=== PATIENT | male | born 1940 | race Caucasian/White ===

== ENCOUNTER 2024-07-31 06:24 | Day surgery (SDC) | payer OTHER, SELFPAY | END 2024-07-31 12:40 | disposition home or self-care (01) | LOC: GI 06:24 | PROVIDERS: ATTENDING PHYSICIAN Internal Medicine Gastroenterology; FAMILY PHYSICIAN Hospitalist | DX: D50.9 Iron deficiency anemia, unspecified (principal); K57.30 Diverticulosis of large intestine without perforation or abscess without bleeding; K64.8 Other hemorrhoids; K62.7 Radiation proctitis; Y84.2 Radiological procedure and radiotherapy as the cause of abnormal reaction of the patient, or of later complication, without mention of misadventure at the time of the procedure; K55.20 Angiodysplasia of colon without hemorrhage; K29.70 Gastritis, unspecified, without bleeding; K29.80 Duodenitis without bleeding; D12.5 Benign neoplasm of sigmoid colon; K29.50 Unspecified chronic gastritis without bleeding | CPT/HCPCS: 45382; 45380; 43239; 88305; 88342 ==

== ENCOUNTER → 2024-09-22 08:28 | Outpatient (REF) | payer OTHER, SELFPAY | LOC: HWRAD 08:28 | PROVIDERS: ATTENDING PHYSICIAN Internal Medicine Gastroenterology; FAMILY PHYSICIAN Hospitalist | DX: R74.8 Abnormal levels of other serum enzymes (principal) | CPT/HCPCS: 76700 ==

== ENCOUNTER → 2024-10-13 18:08 | Outpatient (REF) | payer OTHER, SELFPAY | LOC: MRI 3T 18:08 | PROVIDERS: ATTENDING PHYSICIAN Internal Medicine Gastroenterology; FAMILY PHYSICIAN Hospitalist | DX: K86.89 Other specified diseases of pancreas (principal) | CPT/HCPCS: 74183; A9575 ==